=== PATIENT | male | born 1990 | race Caucasian/White ===

== ENCOUNTER 2017-03-29 14:58 | Emergency (ER) | payer SELFPAY ==
[~2017-03-29] VITALS: Ht 175.3 cm; Wt 60.8 kg
[~2017-03-29 14:58] MED LIST: ACET-1256 PO; IBUP-1050 PO
[2017-03-29 15:05] VITALS: TEMP 36.8; Ht 175.3 cm; Wt 60.8 kg
--- NOTE | 2017-03-29 15:53 | DIAGNOSTIC IMAGING REPORT ---
RIGHT FOREARM 2 VIEWS ROUTINE CLINICAL HISTORY: Right forearm pain. Trauma. COMPARISON: None. DISCUSSION: There is ulnar minus variance. No fractures or dislocations are visualized. There is no evidence for soft tissue swelling. IMPRESSION: Ulnar minus variance. No acute fractures. Electronically signed by: Danny Galvan M.D. 03/29/2017 3:52 PM Dictated Date/Time: 03/29/2017 3:51 PM
[2017-03-29] MEDS ORDERED: PRED20TA2 PO (16:27)
[2017-03-29 16:51] VITALS: BP 115/72; PULSE 65; O2SAT 98
--- NOTE | 2017-03-30 00:07 | EMERGENCY ROOM VISIT NOTE ---
ED Visit Note First contact with patient: 15:23 Chief Complaint: Right forearm pain. History of Present Illness: Mr. Ramirez is a 26-year-old white male who ambulates into the ED complaining of pain over the lower half of the right forearm. Historically patient reports is a 6-year-old he broke his right wrist but doesn' t remember the specific bone/bones broken. 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 Patient reports over the last 2 weeks he has been having constant pain and swelling over the distal half of the right forearm. He describes his pain as a throbbing at rest and sharp with palpation. He places his discomfort mostly over the lateral, posterior medial aspect of the forearm but not the anterior aspect. He rates his discomfort at rest 6/10 and with palpation 7/10. Additionally he has noted that flexion and extension of the wrist as well as pronation and supination of forearm increases his discomfort. He has been using daily ibuprofen with minimal relief of his discomfort. Associated with his pain he has noted swelling but no erythema over the area of pain. He denies neck pain, shoulder pain, upper arm pain, forearm pain, wrist pain, hand pain, hand weakness/numbness/tingling. Review of Systems: As noted above in history of present illness. Past Medical History: As previously noted and other bony fractures. Current Medications: Patient denies. Allergies to Medications: Penicillin. Social History: Patient is currently employed; he feels safe in his home environment; he admits to tobacco and alcohol use. Physical Examination: Vital Signs: Date Time Temp Pulse Resp B/P (MAP) Pulse Ox O2 Delivery O2 Flow Rate FiO2 03/29/17 16:51 65 16 115/72 98 03/29/17 15:05 36.8 72 18 125/73 100 Room Air GENERAL: 26-year-old male in mild distress due to pain, nontoxic-appearing, afebrile and hemodynamically stable. NEUROLOGICAL: Awake, alert and oriented to person, place and time. Answering questions appropriately and following commands. Normal gait. Good hand eye coordination. SKIN: Warm, dry and pink. No soft tissue eruptions or trauma noted. RIGHT UPPER EXTREMITY: No gross bony deformities. No tenderness in the shoulder , upper arm, elbow, proximal half of the forearm, wrist, hands or fingers. Moderate tenderness over the distal half of the forearm with prominence over the medial border. Over the medial border there is also some mild swelling but no erythema or warmth. Patient has full range of motion in all movements of the elbow, forearm, wrist or hand. Distal pulses are intact. Throughout the hand the skin was warm and pink and capillary refill is brisk. He was able to distinguish light sensations to all dermatomes. 5/5 muscle strength in flexion , extension and abduction and abduction of the shoulder, flexion and extension of the elbow, pronation and supination of the forearm, flexion and extension of the wrist and disc pad grinder strength. ED Course: Patient is assessed as noted above. Patient's medication list was reviewed. Right Forearm X-Rays: Was read by myself and the radiologist showing no acute fractures or dislocations. Patient was offered pain medication and refused. Patient's right arm was placed in a shoulder sling. Patient was educated about today's findings and instructed on his treatment plan ; he verbalizes understanding and agreement with this plan. Clinical Impression: Right forearm pain. Decision-Making: Initially my differential diagnosis I considered fracture, tendinitis, muscle strain, soft tissue/bony mass and other causes. Disposition: Patient discharged home in stable condition; prior to departure he was reassessed and subjectively reported he was feeling better. Plan: Patient was encouraged to alternate ibuprofen and acetaminophen as needed for pain every 6 hours. Patient was prescribed prednisone 60 mg once a day for 5 days. Other comfort measures including rest, sling use, ice were all discussed with the patient. Patient was encouraged to follow-up with orthopedics if no better in 5-6 days. Patient was encouraged return ED for worsening/uncontrolled pain, uncontrolled swelling, wrist, hand/finger weakness/numbness/tingling or any new/concerning symptoms.
== END 2017-03-29 16:52 | disposition home or self-care (01) ==
LOC: C.EDB 14:59 → C.EDD 16:52
DX: M79.631 Pain in right forearm (principal); F17.200 Nicotine dependence, unspecified, uncomplicated; Z88.0 Allergy status to penicillin